=== PATIENT | male | born 1970 | race Caucasian/White ===

== ENCOUNTER 2020-10-07 07:04 | Emergency (ER) | payer MEDICAID, OTHER ==
[~2020-10-07] VITALS: Ht 188 cm; Wt 77.3 kg
[2020-10-07 07:07] VITALS: BP 150/83
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
--- NOTE | 2020-10-07 08:16 | NUR ---
ELIZABETH Conte back to bedside to update pt on POC including d/c abx. All needs met at this time.
[2020-10-07] MEDS ORDERED: NEOSPORIN OINT. PKT 1 PACKET ONE (09:14)
== END 2020-10-07 09:41 | disposition home or self-care (01) ==
LOC: ED 07:39
DX: S62.632B Displaced fracture of distal phalanx of right middle finger, initial encounter for open fracture (principal); W23.0XXA Caught, crushed, jammed, or pinched between moving objects, initial encounter; Y93.89 Activity, other specified; Y92.89 Other specified places as the place of occurrence of the external cause; Y99.8 Other external cause status
CPT/HCPCS: 99283